=== PATIENT | female | born 1955 | race African-American/Black ===

== ENCOUNTER 2022-12-26 11:52 | Inpatient (IN) | payer OTHER, BC ==
[2022-12-26 13:16] LABS: ALBUMIN 3.6 g/dl (3.4-5.0); BILIRUBIN,TOTAL 0.9 mg/dl (0.2-1); CALCIUM 9.2 mg/dl (8.5-10); CREATININE 0.6 mg/dl (0.55-1.3); HEMATOCRIT 39.8 % (32.4-45.2); HEMOGLOBIN 13.1 G/dL (10.7-15.3); MCH 29.3 pg (25.7-33.7); MCHC 32.8 g/dl (32.0-36.0); MEAN CELL VOLUME 89.5 fl (80-96); MEAN PLT VOLUME 10.4 fl (7.5-11.1); PLATELET COUNT 137.3 10^3/uL (134-434); RBC 4.45 10^6/uL (3.60-5.2); RDW 15.3 % (11.6-15.6); TOT PROT 6.3 g/dl (6.4-8.2); WHITE BLOOD COUNT 5.7 10^3/uL (4.0-10.8)
[2022-12-26 13:26] LABS: PLATELET ESTIMATE ADEQUATE
[2022-12-26 13:52] LABS: EPITHELIAL CELLS MANY /hpf
[2022-12-26 14:53] LABS: VENOUS BASE EXCESS 1.4 mmol/L (-2-2); VENOUS PCO2 45.9 mmHg (38-52); VENOUS PH 7.387 (7.310-7.410)
[2022-12-26 15:07] LABS: N-TERMINAL BNP 74.6 pg/ml (5-125)
[2022-12-26] MEDS ORDERED: HEPARIN NA (PORCINE) 5,000 UNITS/ML 1ML VIAL IVPUSH PRN ×2 (16:43)
[2022-12-26] MEDS ORDERED: HEPARIN NA (PORCINE) 5,000 UNITS/ML 1ML VIAL IVPUSH ONE (16:43)
[2022-12-26] MEDS ORDERED: HEPARIN INFUSION - 25,000 UNITS/500 ML INFUS.BAG IVPB ONE (16:59)
[2022-12-26] MEDS ORDERED: HEPARIN NA (PORCINE) 5,000 UNITS/ML 1ML VIAL ONE (16:59)
[2022-12-26] MEDS: HEPARIN - 25,000 UNIT in SODIUM CHLORIDE 495 ML IV SCH (17:12)
[2022-12-26 17:18] LABS: INR 1.06 (0.83-1.09); PROTHROMBIN TIME (PATIENT) 12.2 SEC (9.7-13.0)
[2022-12-26 17:21] LABS: ACTIVATED PTT 27.5 SECONDS (25.2-36.5)
[2022-12-26 18:23] VITALS: BMI 30.4
[2022-12-26] MEDS: ATORVASTATIN CA 10 MG TABLET (FP) PO SCH (21:48)
[2022-12-26] MEDS: amLODIPine BESYLATE 5 MG TABLET (FP) PO SCH (21:48)
[2022-12-27 05:54] LABS: HEMATOCRIT 36.1 % (32.4-45.2); HEMOGLOBIN 12.1 GM/dL (10.7-15.3); MCH 28.6 pg (25.7-33.7); MCHC 33.5 g/dl (32.0-36.0); MEAN CELL VOLUME 85.4 fl (80-96); MEAN PLT VOLUME 9.2 fl (7.5-11.1); PLATELET COUNT 132 10^3/uL (134-434); RBC 4.22 M/mm3 (3.60-5.2); RDW 14.1 % (11.6-15.6)
[2022-12-27 06:10] LABS: INR 1.14 (0.83-1.09); PROTHROMBIN TIME (PATIENT) 13.2 SEC (9.7-13.0)
[2022-12-27 06:13] LABS: ACTIVATED PTT 88.6 SECONDS (25.2-36.5)
[2022-12-27 06:20] LABS: CHOLESTEROL 105 mg/dL (50-200)
[2022-12-27 06:25] LABS: HDL CHOLESTEROL 36 mg/dL (40-60); LDL CHOLESTEROL (ONLY SJRH) 60 mg/dL (5-100)
[2022-12-27 14:07] LABS: INR 1.09 (0.83-1.09); PROTHROMBIN TIME (PATIENT) 12.5 SEC (9.7-13.0)
[2022-12-27 14:09] LABS: ACTIVATED PTT 44.2 SECONDS (25.2-36.5)
[2022-12-27] MEDS ORDERED: ACETAMINOPHEN 325 MG TABLET (FP) PO PRN (14:42)
[2022-12-27] MEDS: HEPARIN - 25,000 UNIT in SODIUM CHLORIDE 495 ML IV SCH (15:01)
[2022-12-27] MEDS: ATORVASTATIN CA 10 MG TABLET (FP) PO SCH (21:42)
[2022-12-27] MEDS: DOCUSATE SODIUM 100 MG CAPSULE (FP) PO SCH (21:42)
[2022-12-27] MEDS: amLODIPine BESYLATE 5 MG TABLET (FP) PO SCH (21:42)
[2022-12-28 02:01] VITALS: RESP 18
[2022-12-28 05:30] LABS: ALBUMIN 3.3 g/dl (3.4-5.0); CALCIUM 9.1 mg/dL (8.5-10.1)
[2022-12-28 05:31] LABS: BLOOD UREA NITROGEN 18.1 mg/dL (7-18)
[2022-12-28 05:32] LABS: INR 0.99 (0.83-1.09); PROTHROMBIN TIME (PATIENT) 11.5 SEC (9.7-13.0)
[2022-12-28 05:33] LABS: CREATININE 0.6 mg/dL (0.55-1.3); HEMATOCRIT 36.8 % (32.4-45.2); HEMOGLOBIN 12.2 GM/dL (10.7-15.3); MCH 28.3 pg (25.7-33.7); MCHC 33.1 g/dl (32.0-36.0); MEAN CELL VOLUME 85.5 fl (80-96); MEAN PLT VOLUME 9.4 fl (7.5-11.1); PLATELET COUNT 139 10^3/uL (134-434); RBC 4.31 M/mm3 (3.60-5.2); RDW 14.4 % (11.6-15.6); WHITE BLOOD COUNT 5.3 K/mm3 (4.0-10.0)
[2022-12-28 05:35] LABS: BILIRUBIN,TOTAL 0.4 mg/dL (0.2-1)
[2022-12-28] MEDS: DOCUSATE SODIUM 100 MG CAPSULE (FP) PO SCH ×2 (09:34→21:03)
[2022-12-28] MEDS: ATORVASTATIN CA 10 MG TABLET (FP) PO SCH (21:02)
[2022-12-28] MEDS: amLODIPine BESYLATE 5 MG TABLET (FP) PO SCH (21:03)
[2022-12-29 08:37] LABS: HEMATOCRIT 41.4 % (32.4-45.2); HEMOGLOBIN 13.2 G/dL (10.7-15.3); MCH 28.8 pg (25.7-33.7); MCHC 31.9 g/dl (32.0-36.0); MEAN CELL VOLUME 90.5 fl (80-96); MEAN PLT VOLUME 9.5 fl (7.5-11.1); PLATELET COUNT 154.6 10^3/uL (134-434); RBC 4.58 10^6/uL (3.60-5.2); RDW 15.2 % (11.6-15.6)
[2022-12-29 09:22] VITALS: PULSE 68; TEMP 98.2
[2022-12-29 09:32] VITALS: BP 107/67
[2022-12-29] MEDS ORDERED: APIXABAN 5 MG TABLET PO SCH (10:00)
[2022-12-29] MEDS ORDERED: HEPARIN INFUSION - 25,000 UNITS/500 ML INFUS.BAG IVPB SCH (10:00)
[2022-12-29] MEDS: DOCUSATE SODIUM 100 MG CAPSULE (FP) PO SCH (10:45)
== END 2022-12-29 11:42 | disposition home or self-care (01) | DRG 176 ==
LOC: FER 11:52 → FM/S 16:50
PROVIDERS: ADMIT Internal Medicine
DX: I26.99 Other pulmonary embolism without acute cor pulmonale (principal); G45.9 Transient cerebral ischemic attack, unspecified; I10 Essential (primary) hypertension; E78.5 Hyperlipidemia, unspecified; R91.8 Other nonspecific abnormal finding of lung field
CPT/HCPCS: 0241U-QW; 36415; 70450-TC; 70544-TC; 70547-TC; 70551-TC; 71046-TC-FY; 71275-TC; 74176-TC; 80053; 80061; 81003; 81015; 82140; 82803; 83690; 83880; 84443; 84484; 85027; 85379; 85610; 85730; 93005; 93306-TC; 93970-TC; 97116-GP; 97161-GP; 99285-25; J1644; Q9967

== ENCOUNTER 2023-05-08 04:29 | Day surgery (SDC) | payer OTHER, BC ==
[2023-05-03 11:04] VITALS: BMI 30.6
[2023-05-08] MEDS ORDERED: MIDAZOLAM HCL 2 MG/2 ML SINGLE DOSE VIAL ONE (13:32)
[2023-05-08] MEDS ORDERED: PROPOFOL 40 ML ONE (13:32)
[2023-05-08] MEDS ORDERED: ceFAZolin SODIUM 1 GM VIAL IVPB ONE (14:08)
[2023-05-08] MEDS ORDERED: ONDANSETRON 4 MG/2 ML VIAL IVPUSH PRN (14:35)
[2023-05-08] MEDS ORDERED: LACTATED RINGERS SOLUTION 1,000 ML IV SCH (14:45)
[2023-05-08 17:02] VITALS: RESP 18; TEMP 97.3
[2023-05-08 17:06] VITALS: BP 129/75; PULSE 63
== END 2023-05-08 16:50 | disposition home or self-care (01) ==
LOC: JASU-SURG 04:29
PROVIDERS: ATTEND Urology
PROC: 0TC68ZZ Extirpation of Matter from Right Ureter, Via Natural or Artificial Opening Endoscopic (ICD-10-PCS; principal; 2023-05-08 14:00)
PROC: 0T768DZ Dilation of Right Ureter with Intraluminal Device, Via Natural or Artificial Opening Endoscopic (ICD-10-PCS; 2023-05-08 14:00)
DX: N20.1 Calculus of ureter (principal); N13.5 Crossing vessel and stricture of ureter without hydronephrosis
CPT/HCPCS: 76000-TC-FY; 94760; C1758; C1769; C2617